=== PATIENT | male | born 1950 | race Caucasian/White ===

== ENCOUNTER 2018-04-15 16:25 | Inpatient (IN) | payer MEDICARE, OTHER ==
[2018-04-15] MEDS: DIPHTH/TET/ACEL PERTUSS (ADULT) 0.5 ML VIAL IM* (17:05)
[2018-04-15] MEDS: ONDANSETRON (ODT) 4 MG TAB ODT ×2 (17:43→17:52)
[2018-04-15] MEDS: HYDROCODONE/APAP (10/325) TAB PO ×2 (17:43→17:52)
[2018-04-15] MEDS: CEFAZOLIN 1 GM INJ IM ×2 (17:43→17:52)
[2018-04-15 18:17] LABS: ADD MAN DIFF? NO
[2018-04-15 18:23] LABS: WHITE BLOOD COUNT 7.4 10^3/ul (4.8-10.8)
[2018-04-15 18:23] LABS: BASOPHILS % 0.5 % (0.0-2.0); EOSINOPHILS # 0.2 10^3/ul (0.0-0.5); HEMATOCRIT 45.8 % (42.0-52.0); LYMPHOCYTES # 1.3 10^3/ul (0.8-2.9); MEAN CORPUSCULAR HEMOGLOBIN 28.6 pg (29.0-33.0); MEAN CORPUSCULAR HGB CONC 32.8 g/dl (32.0-37.0); MEAN CORPUSCULAR VOLUME 87.4 fl (82.0-101.0); MEAN PLATELET VOLUME 9.9 fl (7.4-10.4); MONOCYTE # 0.7 10^3/ul (0.3-0.9); MONOCYTES % 9.8 % (0.0-11.0); NEUTROPHIL # 5.2 10^3/ul (1.6-7.5); NEUTROPHILS % 69.4 % (39.0-77.0); PLATELET COUNT 235 10^3/UL (140-415); RED BLOOD COUNT 5.24 10^6/ul (4.70-6.10); RED CELL DISTRIBUTION WIDTH 12.9 % (11.5-14.5)
[2018-04-15] MEDS: CEFAZOLIN 1 GM/50 ML (PMX) 50 ML IVPB (18:38)
[2018-04-15 18:41] LABS: ANION GAP 13 (8-16); BLOOD UREA NITROGEN 19 mg/dl (7-20); CALCIUM 9.2 mg/dl (8.4-10.2); CARBON DIOXIDE 27 mmol/L (21-31); CHLORIDE 107 mmol/L (97-110); CREATININE 1.53 mg/dl (0.61-1.24); GLUCOSE 94 mg/dl (70-220); POTASSIUM 4.1 mmol/L (3.5-5.1); SODIUM 143 mmol/L (135-144)
[2018-04-15] MEDS ORDERED: DOCUSATE SODIUM 100 MG CAP PO (19:00)
[2018-04-15] MEDS ORDERED: NACL 0.9% 3 ML SYG IV (19:00)
[2018-04-15] MEDS ORDERED: ACETAMINOPHEN 325 MG TAB PO (19:00)
[2018-04-15] MEDS ORDERED: MAGNESIUM HYDROXIDE 30ML CUP PO (19:00)
[2018-04-15] MEDS ORDERED: ZOLPIDEM 5 MG TAB PO (19:00)
[2018-04-15] MEDS: HYDROCODONE/APAP (5/325) TAB PO (21:08)
[2018-04-16 06:48] LABS: ADD MAN DIFF? NO
[2018-04-16 06:53] LABS: WHITE BLOOD COUNT 5.5 10^3/ul (4.8-10.8)
[2018-04-16 06:53] LABS: BASOPHILS % 0.5 % (0.0-2.0); EOSINOPHILS # 0.2 10^3/ul (0.0-0.5); EOSINOPHILS % 3.3 % (0.0-7.0); HEMATOCRIT 41.8 % (42.0-52.0); HEMOGLOBIN 13.5 g/dl (14.0-18.0); LYMPHOCYTES # 1.6 10^3/ul (0.8-2.9); LYMPHOCYTES % 28.2 % (15.0-51.0); MEAN CORPUSCULAR HEMOGLOBIN 28.7 pg (29.0-33.0); MEAN CORPUSCULAR HGB CONC 32.3 g/dl (32.0-37.0); MEAN CORPUSCULAR VOLUME 88.9 fl (82.0-101.0); MEAN PLATELET VOLUME 10.3 fl (7.4-10.4); MONOCYTE # 0.7 10^3/ul (0.3-0.9); NEUTROPHIL # 3.1 10^3/ul (1.6-7.5); NEUTROPHILS % 55.8 % (39.0-77.0); PLATELET COUNT 179 10^3/UL (140-415); RED CELL DISTRIBUTION WIDTH 12.6 % (11.5-14.5)
[2018-04-16 07:00] LABS: HEMOGLOBIN A1C 6.1 % (0-5.9)
[2018-04-16 07:22] LABS: ANION GAP 10 (8-16); BLOOD UREA NITROGEN 17 mg/dl (7-20); CALCIUM 8.4 mg/dl (8.4-10.2); CARBON DIOXIDE 28 mmol/L (21-31); CHLORIDE 107 mmol/L (97-110); CREATININE 1.23 mg/dl (0.61-1.24); GLUCOSE 102 mg/dl (70-220); MAGNESIUM 2.1 mg/dl (1.7-2.5); POTASSIUM 3.8 mmol/L (3.5-5.1); SODIUM 141 mmol/L (135-144)
[2018-04-16] MEDS: SOD CHLORIDE 0.9% 1,000 ML IV (13:36)
[2018-04-16] MEDS: hydrALAzine 20 MG INJ IV ×2 (15:30→20:34)
[2018-04-16] MEDS: morphine 2 MG INJ IV (20:33)
[2018-04-16] MEDS ORDERED: METOCLOPRAMIDE 10 MG INJ IV (21:00)
[2018-04-16] MEDS ORDERED: LABETALOL HCL 20MG INJ IV (21:00)
[2018-04-16] MEDS ORDERED: hydrALAzine 20 MG INJ IV (21:00)
[2018-04-16] MEDS ORDERED: ONDANSETRON 4 MG INJ IV (21:00)
[2018-04-16] MEDS ORDERED: OXYCODONE/ACETAMINOPHEN (5/325) TAB PO ×2 (21:00)
[2018-04-16] MEDS ORDERED: ALBUTEROL 0.083% (NEB) 2.5 MG/3 ML AMP HHN (21:00)
[2018-04-16] MEDS ORDERED: DIPHENHYDRAMINE 50 MG INJ IV (21:00)
[2018-04-16] MEDS ORDERED: IPRATROPIUM (NEB) 0.5 MG/2.5 ML AMP HHN (21:00)
[2018-04-16] MEDS ORDERED: FENTAnyl 50 MCG/ML VIAL IV ×3 (21:00)
[2018-04-16] MEDS ORDERED: EPHEDrine SULFATE 50 MG/5 ML SYG IV (21:00)
[2018-04-16] MEDS ORDERED: HYDROmorphONE 1 MG/5 ML IV SYRINGE IV ×3 (21:00)
[2018-04-16] MEDS ORDERED: PROPOFOL 20 ML (21:02)
[2018-04-16] MEDS ORDERED: CEFAZOLIN 1 GM INJ (21:02)
[2018-04-16] MEDS ORDERED: MIDAZOLAM 1 MG/ML 2 ML INJ (21:03)
[2018-04-16] MEDS ORDERED: FENTAnyl 50 MCG/ML VIAL (21:03)
[2018-04-16] MEDS ORDERED: KETOROLAC 30 MG INJ (21:27)
[2018-04-16] MEDS ORDERED: METOCLOPRAMIDE 10 MG INJ (21:27)
[2018-04-16] MEDS ORDERED: DEXAMETHASONE 4 MG/ML 1 ML INJ (21:27)
[2018-04-16] MEDS ORDERED: ACETAMINOPHEN 1000MG/100ML IV 100 ML (21:27)
[2018-04-16] MEDS ORDERED: ONDANSETRON 4 MG INJ (21:27)
[2018-04-16] MEDS ORDERED: BUPIVACAINE 0.25% (MPF) 30 ML INJ (21:42)
[2018-04-16] MEDS ORDERED: NACL 0.9% 3 ML SYG IV (22:00)
[2018-04-16] MEDS ORDERED: morphine 2 MG INJ IV (22:00)
[2018-04-16] MEDS: MEPERIDINE 25 MG INJ IV (22:00)
[2018-04-16] MEDS: D5W-0.45 NACL + KCL 20 MEQ 1,000 ML IV (23:30)
[2018-04-16] MEDS: CEFAZOLIN 1 GM/50 ML (PMX) 50 ML IVPB (23:34)
[2018-04-16] MEDS: HYDROCODONE/APAP (5/325) TAB PO (23:35)
[2018-04-16] MEDS: ONDANSETRON 4 MG INJ IV (23:35)
[2018-04-17] MEDS: CEFAZOLIN 1 GM/50 ML (PMX) 50 ML IVPB ×2 (06:16→13:12)
[2018-04-17] MEDS: HYDROCODONE/APAP (5/325) TAB PO ×3 (06:17→13:22)
[2018-04-17] MEDS: D5W-0.45 NACL + KCL 20 MEQ 1,000 ML IV ×2 (07:49→09:32)
[2018-04-17] MEDS: FLUTICASONE/VILANTEROL 100-25 INH (08:19)
== END 2018-04-17 17:35 | disposition home or self-care (01) | DRG 906 ==
LOC: 2NE 18:47 → E/R 16:25 → 2NE 17:58
PROC: 0X6N0Z1 Detachment at Right Index Finger, High, Open Approach (ICD-10-PCS; principal; 2018-04-16 20:00)
DX: S68.110A Complete traumatic metacarpophalangeal amputation of right index finger, initial encounter (principal)
CPT/HCPCS: 36415; 71045; 73140; 80048; 83036; 83735; 84100; 85025; 90471; 90715; 93005; 97166; 99285-25